=== PATIENT | male | born 1955 | race Caucasian/White ===

== ENCOUNTER 2024-07-22 06:21 | Day surgery (SDC) | payer MEDICARE, BC, SELFPAY ==
[2024-07-22 12:15] LABS: Glucose - Point of Care 102 mg/dl (70-99)
== END 2024-07-22 13:10 | disposition home or self-care (01) ==
LOC: GI 06:21
PROVIDERS: ATTENDING PHYSICIAN Internal Medicine Gastroenterology; FAMILY PHYSICIAN Nurse Practitioner
DX: R10.13 Epigastric pain (principal); K31.7 Polyp of stomach and duodenum; K31.89 Other diseases of stomach and duodenum
CPT/HCPCS: 43239; 88305; 82962; 88342

== ENCOUNTER → 2024-08-24 09:18 | Outpatient (REF) | payer MEDICARE, BC, SELFPAY ==
[2024-08-24 09:35] VITALS: BP 151/90; BP_SYST 62
== END ==
LOC: RADI 09:18
PROVIDERS: ATTENDING PHYSICIAN Otolaryngology; FAMILY PHYSICIAN Nurse Practitioner
DX: E04.1 Nontoxic single thyroid nodule (principal)
CPT/HCPCS: 88173; 10005

== ENCOUNTER → 2024-10-11 08:48 | Outpatient (REF) | payer MEDICARE, BC, SELFPAY | LOC: MRI 3T 08:48 | PROVIDERS: ATTENDING PHYSICIAN Urology; FAMILY PHYSICIAN Nurse Practitioner Family | DX: R97.20 Elevated prostate specific antigen [PSA] (principal) | CPT/HCPCS: 72197; A9575 ==